=== PATIENT | male | born 1995 | race Caucasian/White ===

== ENCOUNTER 2016-09-24 20:17 | Emergency (ER) | payer MEDICAID, OTHER ==
[~2016-09-24] VITALS: Ht 175.3 cm; Wt 63.6 kg
[2016-09-24 20:18] VITALS: BP 129/72
[2016-09-24] MEDS ORDERED: OXYcodone/APAP 5/325MG TABLET PO ONE (20:30)
[2016-09-24] MEDS ORDERED: OXYcodone/APAP 5/325MG TABLET ONE (20:32)
== END 2016-09-24 21:17 | disposition home or self-care (01) ==
LOC: ED 21:06
DX: B02.29 Other postherpetic nervous system involvement (principal)
CPT/HCPCS: 99283